=== PATIENT | female | born 1965 | race Caucasian/White ===

== ENCOUNTER 2024-11-01 12:00 | Day surgery (SDC) | payer OTHER, SELFPAY ==
[2024-11-01] VITALS (8 sets, daily range): BP systolic 104–126; BP diastolic 65–76; PULSE 74–84; RESP 16–20; TEMP 36.1–36.7; O2SAT 93–99; BMI 37.8
--- NOTE | 2024-11-01 09:27 | HP.PCM.OB_ITS ---
History and Physical Date of Admission: 11/01/24 Expand All?Collapse AllExpand All by DefaultPre-Op History and Physical?HPI: The patient is a 59 year old female presenting for discission regarding PMB, thickened EM, stenotic cervix and surgical mgmt. ?pre-operative visit.She is scheduled for Hysteroscopy D&C, for PMB, thickened EM lining and Stenotic cervix on 11/01/24. Procedure discussed along with risks, benefits and complications. Otheralternatives discussed for management. Consent form signed? Yes. ??PAST MEDICAL HISTORYPAST MEDICAL HISTORYDiagnosisDate?Hyperlipemia? ??PAST SURGICAL HISTORYPAST SURGICAL HISTORYProcedureLateralityDate?DILATION & CURETTAGE DX&/THER NONOBSTETRIC???Dilation & curettage?KNEE SURGERY HXRight??pt reported 2022???CURRENT MEDICATIONSCurrent Outpatient MedicationsMedicationSigDispenseRefill?rosuvastatin (CRESTOR) 20 mg tabletTAKE 1 TABLET BY MOUTH EVERY DAY AT BEDTIME FOR 60 DAYS???LORATADINE 10 MG TABprn?0?No current facility-administered medications for this visit.??ALLERGIES: Patient has no known allergies.?PERSONAL HISTORY: SOCIAL HISTORYSocial History?Tobacco Use?Smoking status:Never?Smokeless tobacco:NeverVaping Use?Vaping status:Never UsedSubstance Use Topics?Alcohol use:Yes??Comment: occasionally 2 drinks per month?Drug use:No ?FAMILY HISTORY: FAMILY HISTORYFAMILY HISTORY Pr oblemRelationAge of Onset?HyperlipidemiaMother??Coronary Artery DiseaseFather?? By-pass surgery?other (Fibroids)Sister?? Hysterectomy?DiabetesSister??No Known ProblemsSister??No Known ProblemsSister??Breast CancerSister??Multiple SclerosisBrother??CancerMaternal Grandmother?? throat?DiabetesPaternal Grandmother??CancerPaternal Grandfather?? LUNG CANCER?No Known ProblemsDaughter??No Known ProblemsSon???REVIEW OF SYMPTOMS:negative except as noted above PHYSICAL EXAMINATION:?VITALS: Last menstrual period 09/22/2021.?GENERAL: The patient is well nourished, well hydrated in no acute distress. , The patient is oriented to time, place, and person.NECK: full range of motion LUNGS: Clear to auscultation bilaterally. no wheezes, rhonchi or ralesHEART: Regular rate and rhythm, Normal heart sounds, and No murmurs or gallops?IMPRESSION: 59yo with PMB, thickened endometrium and Stenotic cervix ?PLAN: Hysteroscopy, D&C?Pt has been counseled on risks/benefits and alternatives of surgery including but not limited to anesthesia, bleeding, infection, uterine perforation with subsequent injury to pelvic structures including bowel, bladder, ureters and vessels. Pt wishes to proceed with surgery at this time. ?Pre and post op instructions reviewed ?I have reviewed and updated past medical and surgical history, medications and allergies Andria Cheung MD ?3:53 PM
--- NOTE | 2024-11-01 12:13 | DCINST_ITS ---
Discharge Instructions Diet Discharge Diet: No restrictions DC O2, CPAP, BIPAP needs Home O2 Discharge instructions: No Dressing / Incision May resume sexual activity in: 1 week Dressing / Incision Call your doctor if you observe: Fever of 101 or Higher, Inability to urinate, Using more than 1 pad per hour and Uncontrolled pain Follow Up Care Please Follow Up With: Andria Farias MD When: I will call you with pathology results in 1-2 weeks, if you feel you need an appointment please call [phone] Test Results: Test results from this visit will be discussed in further detail at your follow- up appointment, if applicable. Discharge Plan Admission Attending Provider: Andria Farias Primary Care Provider: Bertin Muro Instructions Print Language: New Zealander Discharge Orders/Prescriptions Prescriptions: No Action rosuvastatin 20 mg tablet 20 mg PO QHS multivitamin [Daily Multi-Vitamin] Tablet 1 tab PO DAILY Referrals / Follow Up: Hever Faye MD [Non-Staff] - Disposition Disposition (needs filled in before D/C Order can be placed): Home, Self Care
--- NOTE | 2024-11-01 12:14 | PCM.PRE.AN2 ---
ASA Classification* ASA Classification ASA Classification: 2 Assessment & Plan Anesthesia* Anesthesia Assessment Anesthesia Assessment: Discussed sedation and/or anesthesia options, risks, benefits, and alternatives with patient/parents/legal guardian/POA. Questions invited. The patient/parents/legal guardian/POA seems to understand and agrees to proceed with anesthesia plan. Reviewed the physical assessment, medical history, allergy history and patient home medications list prior to surgery/procedure/anesthetic and documented any changes. Performed airway and anesthesia risk assessments. Anesthesia Type Anesthesia Type: MAC Anesthesia Focused Assessment* Airway Assessment Mouth opens: >3 cm Mallampati Score: II Labs Anesthesia Preop lab: CBC CHEMISTRY COAG Pre-Assessment Diagnosis/Proposed Procedure Planned Operative Procedure(s): hysterscopy d&c Anesthesia History Anesthesia History - principal solutions architect: Anesthesia History - principal solutions architect Hx Hospitalization No 10/29/24 14:38 Any Problems With Anesthesia No 10/29/24 14:38 Cholinesterase deficiency No 10/29/24 14:38 You/Your Family Experience No 10/29/24 14:38 fever (hyperthermia) with Relationship Recent Exposure to Contagious Disease Does patient have nerve No 10/29/24 14:38 stimulator Patient instructed to have device shut off --Does patient have Pacemaker or ICD? When Was Last Pacemaker Check QUESTION #4 FULL TEXT: You/Your Family Experience fever (hyperthermia) with Anesthesia Last Oral Intake Last Oral intake: Last Oral Intake NPO since Meds taken in AM with sips of water? Meds patient instructed to take am of surgery PONV PONV - principal solutions architect: PONV - principal solutions architect Female Yes 10/29/24 14:38 HX of Motion Sickness No 10/29/24 14:38 HX of N/V After Surgery Yes 10/29/24 14:38 Non-Smoker Yes 10/29/24 14:38 Duration of Surgery greater No 10/29/24 14:38 than 60 minutes Number of Risk Factors 3 10/29/24 14:38 PONV Score Moderate Risk 10/29/24 14:38 Respiratory Assessment Respiratory Assessment - principal solutions architect: Respiratory Tract Infection Hx - principal solutions architect Hx Respiratory Tract Infection No 10/29/24 14:38 STOP Sleep Apnea STOP Sleep Apnea - principal solutions architect: STOP Sleep Apnea - principal solutions architect Hx Hypertension No 10/29/24 14:38 Hx Sleep Apnea No 10/29/24 14:38 CPAP BIPAP Do you snore loudly (louder No 10/29/24 14:38 than talking or can be heard Do you often feel tired/ No 10/29/24 14:38 fatigued/ sleepy during daytime? Has anyone observed you stop No 10/29/24 14:38 breathing during sleep? STOP Results Negative 10/29/24 14:38 QUESTION #5 FULL TEXT : Do you snore loudly (louder than talking or can be heard through closed doors)? Tobacco Use History Tobacco Use History - principal solutions architect: Tobacco Use History - principal solutions architect Tobacco Use Smoking Status Never smoker 10/29/24 14:38 Hx Tobacco Use No 10/29/24 14:38 Years Smoking Packs Smoked per Day Smoking Cessation Date was within the last 15 years Hx Smoking Cessation Date Hx Smoking Cessation Counseling Hematologic Medial History Hematologic Hx - principal solutions architect: Hematologic Medical Hx - documentation coordinator Hx of Blood Transfusion No 10/29/24 14:38 Hx of Transfusion in last 3 No 10/29/24 14:38 Months Date of Last Transfusion (if within last 3 months) Ever experience any problems No 10/29/24 14:38 with transfusion(s)? Specify any problems Hx of Preganancy in last 3 No 10/29/24 14:38 Months Nurse Filling Out Transfusion [id number] 10/29/24 14:38 & Questions: Date: 10/29/24 10/29/24 14:38 Time: 14:41 10/29/24 14:38 Patient unable to answer at this time (ie. confused, unrespo /Reproduction History /Reproductive History - principal solutions architect: /Reproductive Hx- principal solutions architect Hx Now Gestational Age (in weeks): EDC: Hx Hx Para Hx Section SAB Active Medications Active Medications: Current Medications Generic Name Dose Route Start Last Admin Trade Name Freq PRN Reason Stop Dose Admin Lactated Ringer's 1,000 mls @ 15 mls/hr 11/01/24 12:15 IV .Q48H KELECHI PFSH Medical History Wears glasses Wears contact lenses Non-smoker Murmur Home Medications ?Medication ?Instructions ?Recorded ?Last Taken ?Type multivitamin (Daily Multi-Vitamin 1 tab PO DAILY 10/29/24 Unknown History tablet) rosuvastatin 20 mg tablet 20 mg PO QHS 10/29/24 Unknown History Allergy/AdvReac Type Severity Reaction Status Date / Time No Known Allergies Allergy Verified 10/29/24 14:36 Surgical History H/O knee surgery H/O dilation and curettage Social History Smoking Status: Never smoker Review of Systems (Anesthesia) ROS Narrative System reviewed and no additional complaints, except as documented.
[2024-11-01] MEDS: Lactated Ringers 1,000 ML 15 ML IV (12:25)
[2024-11-01 12:32] LABS: Hematocrit 44.3 % (37-47); Hemoglobin 14.4 g/dL (12.0-15.0); Mean Corp Hgb Conc 32.5 g/dL (32-36); Mean Corpuscular Volume 86.0 fL (81-99); Mean Platelet Vol. 10.1 fl (6.2-12.0); Platelet Count 279 K/mm3 (150-450); RBC Distribution Width CV 13.2 % (11.6-14.6); RBC Distribution Width SD 41.0 fl (35.1-43.9); Red Blood Count 5.15 M/mm3 (4.2-5.4); White Blood Count 10.0 K/mm3 (4.4-11.0)
--- NOTE | 2024-11-01 13:00 | EMB_PTH ---
PATIENT: TOYIN POLK LOC: [facility]#:[id number] AGE/SX: 59/F ROOM: RE11/01/[address]: Dr. Andria Farias, MDDOB: 1965 BED: DIS: 11/01/2024 SPEC #: [id number] RECD: 11/01/24 13:21 STATUS: PEARL KAYLA #: [id number] HARIS: 11/01/24 13:[address]: Andria Farias DEPT: SURGICAL PATHOLOGY RECD BY: Nabeel Jensen ENTERED: 11/01/24 14:27 SP TYPE: ENDOM BX/C YEMI DR: Dr. Bertin Muro, DO Tissues: A - Endometrium, NOS Procedures: Surgery Specimen Level IV HEADER OPERATION: Hysteroscopy, D&C PRE-OP DIAGNOSIS: Postmenopausal bleeding, thickened endometrium, stenotic cervix, surgical management TISSUE SUBMITTED: A- Endometrial curettings MICROSCOPIC DIAGNOSIS A. Endometrium, dilation and curettage: * Scant fragments of inactive endometrium MICROSCOPIC DESCRIPTION Slides are reviewed. GROSS DESCRIPTION A. Received in formalin labeled with the patient's name and date of . Designated as endometrial curettings is a 2.4 x 1.5 x 0.3 cm aggregate of dark red, hemorrhagic mucoid material and flecks of possible tissue. Entirely submitted in 1 cassette. IA 11/01/2024 CPT:56452
--- NOTE | 2024-11-01 13:00 | OP.PCM_ITS ---
Operative Report (Standard) Operative Information Date of Procedure: 11/01/24 Pre-Operative Diagnosis: PMB, Thickened endometrium, Stenotic cervix Post-Operative Diagnosis: same Surgery/Procedure Performed: Hysteroscopy, D&C attendant sales: Yes Collar Shaper Operator: Elizabeth alvarez MS4 Tasks completed by assistant food service manager: Retracting Type of Anesthesia: MAC RN Documented Start/Stop Times: Operation Date: 11/01/24 13:30 Case Time Into Pre-Op 11/01/24 12:06 Procedure Start Time: 12:52 Procedure Stop Time: 13:00 Select all DRAINS/GRAFTS/IMPLANTS that apply: None Estimated Blood Loss: <5cc Fluids Replaced: 500 Specimen collected: Yes Description of specimen(s) removed: endometrial curettings Description of surgery: After informed consent was obtained patient was taken to OR and placed in supine position. Anesthesia was given. patient was placed in yellow fin stirrups and prepped and draped in normal sterile fashion. bladder was drained with straight catheter. Weighted speculum placed in posterior fornix of vaginal, single tooth tenaculum was used to gently grasped anterior lip of cervix. Uterus was sounded to 7. Cervix was then gently dilated in an incremental fashion. Was adequate dilation was achieved the hysteroscope was inserted using Normal saline as the distention medium. Upon hysteroscopy there were no gross abnormalities- endometrium appeared atrophic. at this time sharp curettage was performed which yielded small amount of tissue. The tissue was then sent to pathology for examination. Uterine cavity intact, no complications. At this time procedure was deemed complete and successful. Tenaculum removed, speclum removed. Good hemostasis appreciated. Vaginal sweep was negative. Intstrument and lap count correct x 2. I anticipate normal postoperative course. Surgical Findings: atrophic endometrium Complications Complications: No Admit VTE Documentation VTE Present on Admission: Yes VTE Mechan Device Prophylaxis: SCD's VTE Pharm Prophylaxis ordered?: No Reason prophylaxis not ordered: Treatment Not Indicated
--- NOTE | 2024-11-01 13:08 | PCM.POST.ANE ---
Anesthesia: Postop Eval I Current Vital Signs Temperature: 98.1 F Pulse Rate: 84 Blood Pressure: 114/72 Respiratory Rate: 20 Pulse Ox: 93 Assessment Airway patent: Yes Spontaneous unlabored respirations: Yes nausea: No Vomiting: No Anesthesia Complication: No Fluid Hydration Crystalloid volume administer (ml): 500 Total IV fluid infused: 500 Progress Note Anesthesia document: Postop Eval 1 completed: Yes
[2024-11-01 13:28] LABS: Anion Gap 11 (5-15); BUN 17 mg/dL (4-19); BUN/Creat Ratio 21.8 RATIO (10-20); Calcium,Total 10.3 mg/dL (7.6-11.0); Carbon Dioxide 24.6 mmol/L (21.0-32.0); Chloride 108 mmol/L (98-108); Estimated Creatinine Clearance 87.12 ml/min (50-250); Glucose 92 mg/dL (70-99); Potassium 3.9 mmol/L (3.3-5.1)
--- NOTE | 2024-11-01 13:30 | POSTOPAN2_ITS ---
Anesthesia Postop Eval I Sum Postop Eval Completion status Anesthesia document: Postop Eval 1 completed: Yes Anesthesia Postop Eval I Summary Anesthesia Postop Eval I Summary: Anesthesia Postop Eval I: Assessment Summary Airway patent Yes 11/01/24 13:08 ENVIRONMENTAL ENGINEERING MANAGER.CSIR Spontaneous unlabored Yes 11/01/24 13:08 ENVIRONMENTAL ENGINEERING MANAGER.CSIR respirations Mental status nausea No 11/01/24 13:08 ENVIRONMENTAL ENGINEERING MANAGER.CSIR Vomiting No 11/01/24 13:08 ENVIRONMENTAL ENGINEERING MANAGER.CSIR Anesthesia Postop Eval I: Fluid Summary Crystalloid volume administer 500 11/01/24 13:08 ENVIRONMENTAL ENGINEERING MANAGER.CSIR (ml) Colloids volume administered ( ml) Blood Product volume administered (ml) Total IV fluid infused 500 11/01/24 13:08 ENVIRONMENTAL ENGINEERING MANAGER.CSIR Anesthesia Postop Eval I: Summary Notes Anesthesia Complication No 11/01/24 13:08 ENVIRONMENTAL ENGINEERING MANAGER.CSIR Anesthesia Complication Comment: Post-operative progress note Anesthesia: Postop Eval II Evaluation Mental status: Awake Pain Level: 0 nausea: No Vomiting: No
--- NOTE | 2024-11-01 13:30 | PCM.POSTANE2 ---
Anesthesia Postop Eval I Sum Postop Eval Completion status Anesthesia document: Postop Eval 1 completed: Yes Anesthesia Postop Eval I Summary Anesthesia Postop Eval I Summary: Anesthesia Postop Eval I: Assessment Summary Airway patent Yes 11/01/24 13:08 ORTHO NURSE.CSIR Spontaneous unlabored Yes 11/01/24 13:08 ORTHO NURSE.CSIR respirations Mental status nausea No 11/01/24 13:08 ORTHO NURSE.CSIR Vomiting No 11/01/24 13:08 ORTHO NURSE.CSIR Anesthesia Postop Eval I: Fluid Summary Crystalloid volume administer 500 11/01/24 13:08 ORTHO NURSE.CSIR (ml) Colloids volume administered ( ml) Blood Product volume administered (ml) Total IV fluid infused 500 11/01/24 13:08 ORTHO NURSE.CSIR Anesthesia Postop Eval I: Summary Notes Anesthesia Complication No 11/01/24 13:08 ORTHO NURSE.CSIR Anesthesia Complication Comment: Post-operative progress note Anesthesia: Postop Eval II Evaluation Mental status: Awake Pain Level: 0 nausea: No Vomiting: No
== END 2024-11-01 14:05 | disposition home or self-care (01) ==
LOC: SDC 12:03 → AC 12:05
PROVIDERS: PCP Student in an Organized Health Care Education/Training Program; Referring Provider Obstetrics & Gynecology; Visit Provider Obstetrics & Gynecology
PROC: 0UDB8ZZ Extraction of Endometrium, Via Natural or Artificial Opening Endoscopic (ICD-10-PCS; CPT 58558; principal; 2024-11-01 13:15)
DX: N95.0 Postmenopausal bleeding (principal); N85.8 Other specified noninflammatory disorders of uterus
CPT/HCPCS: 58558; 00952; 80048; 85027; 88305; J2405